=== PATIENT | male | born 1965 | race Caucasian/White ===

== ENCOUNTER 2018-08-03 13:30 | Emergency (ER) | payer BC, OTHER ==
[2018-08-03] MEDS ORDERED: Benzocaine/Menthol (Cepacol) Lozenge MT ONE (13:53)
--- NOTE | 2018-08-03 13:58 | C.PDOC ---
History Of Present Illness 53 y/o male presents to the ER complaining of productive cough w/yellow phlegm, sore throat, and body aches which have been present for the past few days. Patient states that he was anxious because he thought that the throat pain was a symptom of "throat cancer." Patient reports that he has history of tobaccos smoking for the past 5 years and he drinks ETOH daily. Denies having fever, chills, nausea, vomiting, and diarrhea. Time Seen by Provider: 08/03/18 13:36 Chief Complaint (Nursing): Anxiety History Per: Patient History/Exam Limitations: no limitations Onset/Duration Of Symptoms: Days Current Symptoms Are (Timing): Still Present Severity: Moderate Past Medical History Reviewed: Historical Data, Nursing Documentation, Vital Signs Vital Signs: Last Vital Signs Temp 99.1 F 08/03/18 13:42 Pulse 104 H 08/03/18 13:42 Resp 19 08/03/18 13:42 BP 156/84 H 08/03/18 13:42 Pulse Ox 98 08/03/18 13:42 - Medical History PMH: Gastrointestinal Ulcer, Hypothyroidism Denies: Diabetes, Hepatitis, HIV, HTN, Seizures, Sexually Transmitted Disease Surgical History: No Surg Hx - [facility] Procedures ALCOHOL DETOXIFICATION (09/03/13) DETOXIFICATION SERVICES FOR SUBSTANCE ABUSE TREATMENT (02/16/16) Family History: States: No Known Family Hx - Social History Hx Tobacco Use: Yes Hx Alcohol Use: Yes Hx Substance Use: No - Immunization History Hx Tetanus Toxoid Vaccination: No Hx Influenza Vaccination: Yes Hx Pneumococcal Vaccination: Yes Review Of Systems Except As Marked, All Systems Reviewed And Found Negative. Constitutional: Positive for: Malaise. Negative for: Fever, Chills ENT: Positive for: Throat Pain Cardiovascular: Negative for: Chest Pain Respiratory: Positive for: Cough. Negative for: Shortness of Breath Gastrointestinal: Negative for: Nausea, Vomiting, Diarrhea Physical Exam - Physical Exam Appears: Non-toxic, No Acute Distress Skin: Normal Color, Warm, Dry Head: Atraumatic, Normacephalic Eye(s): bilateral: Normal Inspection Ear(s): Bilateral: Normal Nose: Normal Oral Mucosa: Moist Throat: Erythema (mild erythema), No Exudate Neck: Supple Chest: Symmetrical Cardiovascular: Rhythm Regular Respiratory: Normal Breath Sounds, No Rales, No Rhonchi, No Wheezing Gastrointestinal/Abdominal: Normal Exam, Soft, No Tenderness, No Guarding, No Rebound Neurological/Psych: Oriented x3, Normal Speech ED Course And Treatment O2 Sat by Pulse Oximetry: 98 (RA) Pulse Ox Interpretation: Normal - Other Rad CXR X-Ray: Viewed By Me, Read By Radiologist Interpretation: Date of service: 08/03/2018. PROCEDURE: CHEST RADIOGRAPH, 1 VIEW. HISTORY: productive cough. COMPARISON: None available. FINDINGS: LUNGS: The lungs are well inflated and clear. PLEURA: No pneumothorax or pleural effusion. CARDIOVASCULAR: The heart is normal in size. No aortic atherosclerotic calcifications present. OSSEOUS STRUCTURES: Within normal li mits for the patient's age. VISUALIZED UPPER ABDOMEN: Normal. OTHER FINDINGS: None. IMPRESSION: No active pulmonary disease. Medical Decision Making Medical Decision Making: Plan: --Toradol IM --CXR Updates: On re-evaluation, patient is feeling better. Patient has been diagnosed with acute bronchitis and discharged home. Disposition - Disposition Referrals: [facility] at [facility] [Outside] [facility] at [facility] [Outside] [facility] at [place] [Outside] Disposition: HOME/ ROUTINE Disposition Time: 14:56 Condition: GOOD Prescriptions: Azithromycin [Zithromax] 250 mg PO DAILY 5 Days #6 tab Benzocaine/Menthol [Cepacol Sore Throat Lozenge] 1 each MM Q3 #6 lozenge Instructions: Acute Bronchitis Forms: [facility] (Dutch) - Clinical Impression Clinical Impression: Acute bronchitis - Scribe Statement The provider has reviewed the documentation as recorded by the Debbie Marin Provider Attestation: All medical record entries made by the Brendaibe were at my direction and personally dictated by me. I have reviewed the chart and agree that the record accurately reflects my personal performance of the history, physical exam, medical decision making, and the department course for this patient. I have also personally directed, reviewed, and agree with the discharge instructions and disposition.
--- NOTE | 2018-08-03 14:28 | RAD ---
Date of service: 08/03/2018 PROCEDURE: CHEST RADIOGRAPH, 1 VIEW HISTORY: productive cough COMPARISON: None available. FINDINGS: LUNGS: The lungs are well inflated and clear. PLEURA: No pneumothorax or pleural effusion. CARDIOVASCULAR: The heart is normal in size. No aortic atherosclerotic calcifications present. OSSEOUS STRUCTURES: Within normal limits for the patient's age. VISUALIZED UPPER ABDOMEN: Normal. OTHER FINDINGS: None. IMPRESSION: No active pulmonary disease.
[2018-08-03 14:57] VITALS: BP 149/79; PULSE 99; RESP 18; TEMP 99.2
[2018-08-08 14:51] VITALS: O2SAT 98
== END 2018-08-03 14:56 | disposition home or self-care (01) ==
LOC: C.ER 13:30
DX: J20.9 Acute bronchitis, unspecified (principal)
CPT/HCPCS: 71045; 96372; 99283; J1885

== ENCOUNTER 2018-08-09 22:34 | Inpatient (IN) | payer OTHER ==
[2018-08-09 23:07] LABS: EOS # 0.1 K/uL (0.0-0.7); HEMOGLOBIN 15.1 g/dL (12.0-18.0); MONO # 0.8 K/uL (0.0-0.8)
--- NOTE | 2018-08-09 23:13 | C.PDOC ---
History Of Present Illness 53 year old male is brought to the ED by EMS for evaluation of feeling depressed. Patient admits to drinking alcohol today. Patient denies SI/HI, hallucinations, CP, SOB, injury, fall, trauma. Time Seen by Provider: 08/09/18 23:12 Chief Complaint (Nursing): Psychiatric Evaluation History Per: Patient, EMS History/Exam Limitations: intoxication Onset/Duration Of Symptoms: Hrs Current Symptoms Are (Timing): Still Present Suicide/Self Injury Attempted (Context): None Modifying Factor(s): Alcohol Associated Symptoms: Depression. denies: Suicidal Thoughts, Suicidal Plan Recent travel outside of the [place]: No Additional History Per: Patient, EMS Past Medical History Reviewed: Historical Data, Nursing Documentation, Vital Signs Vital Signs: Last Vital Signs Temp 98.5 F 08/09/18 22:36 Pulse 93 H 08/09/18 22:36 Resp 18 08/09/18 22:36 BP 132/85 08/09/18 22:36 Pulse Ox 97 08/09/18 22:36 - Medical History PMH: Gastrointestinal Ulcer, Hypothyroidism Denies: Diabetes, Hepatitis, HIV, HTN, Seizures, Sexually Transmitted Disease Surgical History: No Surg Hx - [facility] Procedures ALCOHOL DETOXIFICATION (09/03/13) DETOXIFICATION SERVICES FOR SUBSTANCE ABUSE TREATMENT (02/16/16) Family History: States: Unknown Family Hx - Social History Hx Tobacco Use: Yes Hx Alcohol Use: Yes Hx Substance Use: No - Immunization History Hx Tetanus Toxoid Vaccination: No Hx Influenza Vaccination: Yes Hx Pneumococcal Vaccination: Yes Review Of Systems Constitutional: Negative for: Fever, Chills Eyes: Negative for: Vision Change Cardiovascular: Negative for: Chest Pain Respiratory: Negative for: Cough Gastrointestinal: Negative for: Nausea, Vomiting, Abdominal Pain Skin: Negative for: Rash Psych: Positive for: Depression. Negative for: Suicidal ideation Physical Exam - Physical Exam Appears: Non-toxic, No Acute Distress Skin: Warm, Dry Head: Normacephalic Eye(s): bilateral: Normal Inspection Neck: Supple Chest: Symmetrical Cardiovascular: Rhythm Regular Respiratory: No Rales, No Rhonchi, No Wheezing Gastrointestinal/Abdominal: Soft, No Tenderness, No Guarding, No Rebound Extremity: Bilateral: Atraumatic, Normal Color And Temperature, Normal ROM Neurological/Psych: Oriented x3, Normal Speech, Normal Cognition Gait: Steady ED Course And Treatment - Laboratory Results Result Diagrams: 08/09/18 23:04 08/09/18 23:04 O2 Sat by Pulse Oximetry: 97 (ON RA) Pulse Ox Interpretation: Normal Progress Note: Plan: - Labs. - Crisis. - UA Disposition Discussed With Dr.: Zayda Bonner Comment: accepted the pt onhis service and took over the care at 3:47 Doctor Will See Patient In The: Hospital Counseled Patient/Family Regarding: Studies Performed, Diagnosis - Disposition Disposition: HOSPITALIZED Disposition Time: 23:13 Condition: FAIR Forms: [facility] (Romanian) - POA Present On Arrival: Poor Glycemic Control - Clinical Impression Clinical Impression: Alcohol use disorder - Scribe Statement The provider has reviewed the documentation as recorded by the Scribe Lucas Tomas All medical record entries made by the Scribe were at my direction and personally dictated by me. I have reviewed the chart and agree that the record accurately reflects my personal performance of the history, physical exam, medical decision making, and the department course for this patient. I have also personally directed, reviewed, and agree with the discharge instructions and disposition. Decision To Admit - Pt Status Changed To: Hospital Disposition Of: Inpatient - Admit Certification Admit to Inpatient:: After my assessment, the patient will require hospitalization for at least two midnights. This is because of the severity of symptoms shown, intensity of services needed, and/or the medical risk in this patient being treated as an outpatient. - InPatient: Physician Admission Certification: I certify that this patient requires 2 or more midnights of care for the following reason:: After my assessment, the patient will require hospitalization for at least two midnights. This is because of the severity of symptoms shown, intensity of services needed, and/or the medical risk in this patient being treated as an outpatient. - . Bed Request Type: Detox Admitting Physician: Zayda Bonner Patient Diagnosis: Alcohol use disorder
[2018-08-09 23:14] LABS: URINE BILIRUBIN NEGATIVE (NEGATIVE); URINE BLOOD 1+ (NEGATIVE); URINE CLARITY Clear (Clear); URINE COLOR Straw (YELLOW); URINE GLUCOSE (UA) NORMAL (Normal); URINE LEUKOCYTE ESTERASE NEG Leu/uL (Negative); URINE PROTEIN NEGATIVE (NEGATIVE); URINE UROBILINOGEN NORMAL mg/dL (0.2-1.0)
[2018-08-09 23:15] LABS: BASO % 0.6 % (0.0-2.0); EOS % 1.1 % (0.0-4.0); LYMPH # 1.9 K/uL (1.0-4.3); LYMPH % 24.1 % (20.0-40.0); MEAN CORPUSCULAR HEMOGLOBIN 30.6 pg (27.0-31.0); MEAN CORPUSCULAR HGB CONC 33.7 g/dL (33.0-37.0); MEAN PLATELET VOLUME 7.1 fL (7.2-11.7); MONO % 10.4 % (0.0-10.0); NEUT % 63.8 % (50.0-75.0); RBC 4.94 Mil/uL (4.40-5.90); RED CELL DISTRIBUTION WIDTH 14.8 % (11.5-14.5); WHITE BLOOD COUNT 7.8 K/uL (4.8-10.8)
[2018-08-09 23:17] LABS: ALB/GLOB RATIO 1.2 (1.0-2.1); ALBUMIN 4.6 g/dL (3.5-5.0); ALT/SGPT 65 U/L (21-72); AST/SGOT 110 U/L (17-59); BLOOD UREA NITROGEN 5 mg/dL (9-20); CALCIUM 8.9 mg/dl (8.6-10.4); GFR NON-AFRICAN AMERICAN > 60
[2018-08-09 23:19] LABS: MEAN CELL VOLUME 90.8 fL (80.0-94.0)
[2018-08-09 23:23] LABS: BARBITURATES, UR NEGATIVE (NEGATIVE); BENZODIAZEPINES, UR NEGATIVE (NEGATIVE); OPIATES, UR NEGATIVE (NEGATIVE); PHENCYCLIDINE, UR NEGATIVE (NEGATIVE)
--- NOTE | 2018-08-10 05:34 | PCM.BM ---
<Grupo Brian - Last Filed: 08/10/18 05:33> Treatment Plan Problems - Problems identified on initial assessmt potential for alcohol withdrawal Date Initiated: 08/10/18 Time Initiated: 05:33 Assessment reference: NA Status: Active Treatment assets and liabiliti Patient Assests: cooperative, ADL independent, cognitively intact, good interpersonal skills Patient Liabilities: substance abuse - Milieu Protocol Maintain good personal hygiene: daily Encourage regular showers, daily Remind patient to perform daily oral care, daily Assist patient to perform ADL's Maintain personal safety: every shift Educate patient to report safety concerns to staff, every shift Monitor environment for contraband/sharps Medication safety: Monitor for expected outcome, potential side effects: every shift, Assess barriers to learning: every shift, Assess readiness for medication education: every shift <Miriam Trevino - Last Filed: 08/10/18 12:16> Family Contact Family involvement: No known Family/SO - Goals for Treatment Patient goals for treatment: Complete detox and apply for long-term inpatient rehab. Discharge/Continuing Care - Education Needs Education Needs: Patient Medication, Patient Diagnosis/Disease Process, Patient Coping Skills, Patient Anger Management skills, Patient Placement options, Patient Community resources - Discharge Discharge Criteria: No longer exhibiting s/s of withdrawal, Reduction of target symptoms Discharge to:: Substance Abuse Rehab - Treatment Team Participation Patient/Family/SO Statement: 08/10/18 12:16 (via obstetrics gyn physician) "I wanna try to get back into [facility]. I called a counselor there. She told me to call when I got here. I talked to her last week before I came in here..." Discussed with Family/SO: No Was Patient/Family/SO present at Treatment Team Meeting: Yes <Alexandria Lamb - Last Filed: 08/12/18 09:13> - Diagnosis (1) Alcohol use disorder Status: Acute Interventions: 08/10/18 19:13 * Assess 7x/week regarding severity of withdrawal * Educate regarding risks, benefits, side effects and alternatives of medications * Use Motivational Interviewing for abstinence * Use CBT for relapse prevention * Medication management for withdrawal symptoms * Encourage medication assisted treatment *
[2018-08-10] MEDS: Multiple Vitamins Tab PO SCH (10:11)
--- NOTE | 2018-08-11 00:05 | PCM.PSYCH ---
Initial Psychiatric Evaluation - Initial Psychiatric Evaluation Type of Admission: Voluntary Legal Status: Capacity Chief Complaint (in patient's own words): "Alcohol" History of Present Illness and Precipitating Events: Patient seen, chart reviewed and case discussed. Online regional sales consultant used for the interview. This is a 53-year-old male, , has 1 adult daughter, currently homeless. 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 The patient reports to drinking 24 ounce beers more than 5 and a couple of shots every day. He reports significant withdrawal symptoms. He first drank when he was 20 and he has been to detox and rehab 4 times each since then. He was in [facility], too. He smokes 8 cigarettes a day He used to use heroin but he quit 18 years ago. He feels depressed and anxious but denies suicidal ideation. Past psychiatric: Depression Medical history: Denies Family psych history: Denies Current Medications: Active Medications Generic Name Dose Route Start Last Admin Trade Name Freq PRN Reason Stop Dose Admin Chlordiazepoxide 25 mg 08/10/18 10:00 08/10/18 21:06 Librium PO 08/15/18 09:59 25 mg Q6H ALEXIS Administration Taper Chlordiazepoxide 25 mg 08/10/18 08:55 Librium PO Q4H PRN Alcohol Withdrawal Clonidine HCl 0.1 mg 08/10/18 08:55 08/10/18 21:06 Catapres PO 0.1 mg Q4H PRN Administration Symptoms of alcohol withdrawl Folic Acid 1 mg 08/10/18 10:00 08/10/18 10:12 Folic Acid PO 1 mg DAILY ALEXIS Administration Multivitamins 1 tab 08/10/18 10:00 08/10/18 10:11 Hexavitamin PO 1 tab DAILY ALEXIS Administration Thiamine HCl 100 mg 08/10/18 10:00 08/10/18 10:11 Vitamin B1 Tab PO 100 mg DAILY ALEXIS Administration Trazodone HCl 50 mg 08/10/18 08:55 08/10/18 21:06 Desyrel PO 50 mg HS PRN Administration Insomnia Past Psychiatric History - Past Psychiatric History Previous Treatment History: None Pertinent Medical Hx (Current Medical&Sleep Prob, Allergies): Allergies Allergy/AdvReac Type Severity Reaction Status Date / Time No Known Allergies Allergy Verified 08/09/18 22:55 Lipitor 1 tab PO DAILY 08/03/18 Review of Systems - Neurological Neurological: Tremor - Psychiatric Psychiatric: Abnormal Sleep Pattern, Anhedonia, Anxiety, Depression. absent: Hallucinations, Homicidal Ideation, Suicidal Ideation Mental Status Examination - Personal Presentation Personal Presentation: Looks older than stated age - Affect Affect: Constricted - Motor Activity Motor Activity: Calm - Reliability in Providing Information Reliability in Providing Information: Good - Speech Speech: Organized - Mood Mood: Depressed, Anxious - Formal Thought Process Formal Thought Process: No Impairment - Cognitive Functions Orientation: Person, Place, Situation, Time Attention/Concentration: Easily distracted Estimate of Intelligence: Average Judgement: Intact, as evidence by: Insight regarding need for hospitalization Memory: Recent intact, as evidence by: Ability to recall events of the day, Remote impaired as evidenced by: Inability to recall sig life events - Risk Risk: Withdrawal, Diminished functioning - Strength & Assets Inventory Strength & Assets Inventory: Cooperative DSM 5 DX - DSM 5 DSM 5 Diagnosis: Alcohol withdrawal alcohol use d/o - severe Depressive d/o - unspecified Opioid use d/o - in remission - Recommended/Plan of Treatment Treatment Recommendations and Plan of Treatment: Taper with librium Gabapentin for augmentation if needed As needed medications All risks, benefits and alternatives of the meds discussed, and the pt agreed and understood. Attend groups and activities Supportive therapy and psychoeducation [place] for abstinence CBT for relapse prevention Encourage MAT Refer to rehab or IOP, and self-help groups Teach healthy lifestyle methods, i.e. diet, exercise, meditation Smoking cessation with [place] Nicotine patch if needed 33 min Projected ELOS: 4 days - Smoking Cessation Smoking Cessation Initiated: Yes
--- NOTE | 2018-08-11 08:14 | PCM.PYCHPN ---
Psychiatric Progress Note - Psychiatric Progress Note Patient seen today, length of contact: 16 min Patient Chief Complaint: I am not feeling good.' Problems Identified/Issues Discussed: Patient was seen and evaluated, chart reviewed and discussed with the staff. Patient still reports withdrawal symptoms including nausea, sweating and headaches. He remained isolated and withdrawn, however he denies any feelings of hopelessness and helplessness. He denies any suicidal ideation or homicidal ideation. He denies any auditory hallucinations or any paranoia. He is taking medication and denies any side effects. Symptoms are improving but he needs to stay longer for further stabilization. Supportive therapy was given Medication Change: Yes Medical Record Reviewed: Yes Mental Status Examination - Cognitive Function Orientation: Person, Place, Situation, Time Memory: Intact Attention: WNL Concentration: Poor Association: WNL Fund of Knowledge: Poor - Mood Mood: Depressed, Anxious - Affect Affect: Constricted - Formal Thought Process Formal Thought Process: No Impairment - Suicidal Ideation Suicidal Ideation: No - Homicidal Ideation Homicidal Ideation: No Goal/Treatment Plan - Goal/Treatment Plan Need for Continued Stay: Discharge may exacerbated symptoms Progress Toward Problem(s) and Goals/Treatment Plan: Alcohol withdrawal alcohol use d/o - severe Depressive d/o - unspecified Opioid use d/o - in remission Taper with librium Gabapentin for augmentation if needed As needed medications All risks, benefits and alternatives of the meds discussed, and the pt agreed and understood. Attend groups and activities Supportive therapy and psychoeducation [place] for abstinence CBT for relapse prevention Encourage MAT Refer to rehab or IOP, and self-help groups Teach healthy lifestyle methods, i.e. diet, exercise, meditation Smoking cessation with [place] Nicotine patch if needed - Smoking Cessation Smoking Cessation Initiated: No
[2018-08-11] MEDS: Multiple Vitamins Tab PO SCH (09:56)
[2018-08-11] MEDS: guaiFENesin DM 200 mg-20 mg/10 ml UD PO PRN (21:32)
[2018-08-11] MEDS: Benzocaine/Menthol (Cepacol) Lozenge PO PRN (21:32)
[2018-08-12] MEDS: Multiple Vitamins Tab PO SCH (09:57)
[2018-08-12] MEDS: Benzocaine/Menthol (Cepacol) Lozenge PO PRN (10:00)
[2018-08-12] MEDS: guaiFENesin DM 200 mg-20 mg/10 ml UD PO PRN (10:00)
[2018-08-13] MEDS: Multiple Vitamins Tab PO SCH (09:39)
[2018-08-13 11:15] VITALS: RESP 18
--- NOTE | 2018-08-14 00:19 | PCM.PYCHPN ---
Psychiatric Progress Note - Psychiatric Progress Note Patient seen today, length of contact: 16 min Patient Chief Complaint: "Alcohol" Medication Change: Yes (detox changes daily) Medical Record Reviewed: Yes Mental Status Examination - Cognitive Function Orientation: Person, Place, Situation, Time Memory: Intact Attention: WNL Concentration: Poor Association: WNL Fund of Knowledge: Poor - Mood Mood: Depressed, Anxious - Affect Affect: Constricted - Formal Thought Process Formal Thought Process: No Impairment - Suicidal Ideation Suicidal Ideation: No - Homicidal Ideation Homicidal Ideation: No Goal/Treatment Plan - Goal/Treatment Plan Need for Continued Stay: Discharge may exacerbated symptoms Progress Toward Problem(s) and Goals/Treatment Plan: Taper with librium Gabapentin for augmentation if needed As needed medications All risks, benefits and alternatives of the meds discussed, and the pt agreed and understood. Attend groups and activities Supportive therapy and psychoeducation [place] for abstinence CBT for relapse prevention Encourage MAT Refer to rehab or IOP, and self-help groups Teach healthy lifestyle methods, i.e. diet, exercise, meditation Smoking cessation with [place] Nicotine patch if needed 33 min
--- NOTE | 2018-08-14 08:59 | PCM.PYCHDC ---
Mental Status Examination - Mental Status Examination Orientation: Person Discharge Summary - Discharge Note Consultations:: List each consultation separately and include: 1. Reason for request. 2. Findings. 3. Follow-up Summary of Hospital Course include:: 1. Description of specific treatment plan utilized for patients during their course of treatmen. 2. Summarize the time- course for resolution of acute symptoms and/or regressed behaviors. 3. Describe issues identified and worked on during hospitalization. 4. Describe medication utilized. 5. Describe medical problems identified and treated. 6. Reassessment of suicide risk Summary of Hospital Course: Patient seen, chart reviewed and case discussed. Online interpreter and translator used for the interview. This is a 53-year-old male, , has 1 adult daughter, currently homeless. 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 The patient reports to drinking 24 ounce beers more than 5 and a couple of shots every day. He reports significant withdrawal symptoms. He first drank when he was 20 and he has been to detox and rehab 4 times each since then. He was in [facility], [facility]. He smokes 8 cigarettes a day He used to use heroin but he quit 18 years ago. He feels depressed and anxious but denies suicidal ideation. Past psychiatric: Depression Medical history: Denies Family psych history: Denies He refused [facility] and rejected by [facility]. Will go to - Diagnosis (1) Alcohol use disorder Current Visit: Yes Status: Acute - Final Diagnosis (DSM 5) Condition upon Discharge: FAIR Disposition: HOME/ ROUTINE Follow-up Treatment Plan: Taper with librium Gabapentin for augmentation if needed As needed medications All risks, benefits and alternatives of the meds discussed, and the pt agreed and understood. Attend groups and activities Supportive therapy and psychoeducation [place] for abstinence CBT for relapse prevention Encourage MAT Refer to rehab or IOP, and self-help groups Teach healthy lifestyle methods, i.e. diet, exercise, meditation Smoking cessation with [place] Nicotine patch if needed 33 min Prescriptions/Medication Reconciliation: traZODone [Desyrel] 50 mg PO HS PRN #30 tab PRN Reason: Insomnia
[2018-08-14 09:06] VITALS: BP 115/75; PULSE 70; TEMP 97.7; O2SAT 97
[2018-08-14] MEDS: Multiple Vitamins Tab PO SCH (09:19)
== END 2018-08-14 10:40 | disposition home or self-care (01) | DRG 745 ==
LOC: C.ER 22:34 → C.7D 08-10 04:19
PROVIDERS: ADMIT Psychiatry & Neurology Psychiatry; ATTEND Psychiatry & Neurology Psychiatry
PROC: HZ2ZZZZ Detoxification Services for Substance Abuse Treatment (ICD-10-PCS; principal; 2018-08-10)
PROC: GZ3ZZZZ Medication Management (ICD-10-PCS; 2018-08-10)
PROC: HZ80ZZZ Medication Management for Substance Abuse Treatment, Nicotine Replacement (ICD-10-PCS; 2018-08-10)
PROC: HZ59ZZZ Individual Psychotherapy for Substance Abuse Treatment, Supportive (ICD-10-PCS; 2018-08-10)
PROC: HZ46ZZZ Group Counseling for Substance Abuse Treatment, Psychoeducation (ICD-10-PCS; 2018-08-10)
DX: F10.230 Alcohol dependence with withdrawal, uncomplicated (principal); F11.11 Opioid abuse, in remission; F32.9 Major depressive disorder, single episode, unspecified; F17.210 Nicotine dependence, cigarettes, uncomplicated; E03.9 Hypothyroidism, unspecified; Z87.11 Personal history of peptic ulcer disease

== ENCOUNTER 2018-08-16 03:45 | Emergency (ER) | payer OTHER ==
[2018-08-16 03:58] VITALS: BP 118/82; PULSE 82; RESP 20; TEMP 97.2; O2SAT 100
[2018-08-16] MEDS ORDERED: Amoxicillin 125 MG/5 ml PO STA (04:59)
--- NOTE | 2018-08-16 05:07 | C.PDOC ---
History Of Present Illness 53 year old male brought in via EMS for public intoxication. Patient states he has been drinking a lot tonight. He reports sore throat for the past few days. Denies fever or other complaints. Chief Complaint (Nursing): Substance Abuse History Per: Patient History/Exam Limitations: no limitations Onset/Duration Of Symptoms: Days Current Symptoms Are (Timing): Still Present Suicide/Self Injury Attempted (Context): None Modifying Factor(s): Alcohol Associated Symptoms: denies: Depression, Suicidal Thoughts Involuntary Hold By: None Recent travel outside of the [place]: No Past Medical History Reviewed: Historical Data, Nursing Documentation, Vital Signs Vital Signs: Last Vital Signs Temp 97.2 F L 08/16/18 03:52 Pulse 82 08/16/18 03:52 Resp 20 08/16/18 03:52 BP 118/82 08/16/18 03:52 Pulse Ox 100 08/16/18 03:52 - Medical History PMH: Depression, Gastrointestinal Ulcer, Hypercholesterolemia, Hypothyroidism Denies: Diabetes, Hepatitis, HIV, HTN, Chronic Kidney Disease, Seizures, Sexually Transmitted Disease - [facility] Procedures ALCOHOL DETOXIFICATION (09/03/13) DETOXIFICATION SERVICES FOR SUBSTANCE ABUSE TREATMENT (08/10/18) GROUP SAW FILER FOR SUBSTANCE ABUSE TREATMENT, PSYCHOEDUCATION (08/10/18) INDIV PSYCHOTHERAPY FOR SUBSTANCE ABUSE TREATMENT, SUPPORT (08/10/18) MEDICATION MANAGEMENT (08/10/18) MEDS MGMT FOR SUBSTANCE ABUSE TREATMENT, NICOTINE REPLACE (08/10/18) Family History: States: Unknown Family Hx - Social History Hx Tobacco Use: Yes Hx Alcohol Use: Yes Hx Substance Use: Yes - Immunization History Hx Tetanus Toxoid Vaccination: No Hx Influenza Vaccination: Yes Hx Pneumococcal Vaccination: Yes Review Of Systems Constitutional: Negative for: Fever, Chills ENT: Positive for: Throat Pain Cardiovascular: Negative for: Chest Pain, Palpitations Respiratory: Negative for: Cough, Shortness of Breath Gastrointestinal: Negative for: Nausea, Vomiting Neurological: Negative for: Weakness, Numbness Physical Exam - Physical Exam Appears: Non-toxic, Other (Alert, conscious, ETOH on breath, no sign of injury) Skin: Normal Color, Warm, Dry Head: Atraumatic, Normacephalic Eye(s): bilateral: Normal Inspection Ear(s): Bilateral: Normal Nose: Normal Oral Mucosa: Moist Throat: No Exudate, Other (Congested) Neck: Normal, Supple Chest: Symmetrical, No Tenderness Cardiovascular: Rhythm Regular Respiratory: Normal Breath Sounds, No Rales, No Rhonchi, No Wheezing Gastrointestinal/Abdominal: Soft, No Tenderness Extremity: Normal ROM (x4) Neurological/Psych: Oriented x3, Normal Speech ED Course And Treatment O2 Sat by Pulse Oximetry: 100 (Room air) Pulse Ox Interpretation: Normal Progress Note: Rapid strep and flu swab ordered. Amoxicillin administered. Patient eloped at 0510, he was witness ambulating out of the ER with steady gait. Disposition - Disposition Disposition: ELOPEMENT - ER ONLY Disposition Time: 05:20 Condition: STABLE Forms: [employer] (Kyrgyz) - Clinical Impression Clinical Impression: Alcohol abuse - Scribe Statement The provider has reviewed the documentation as recorded by the Scribadonay Watt All medical record entries made by the Scribe were at my direction and personally dictated by me. I have reviewed the chart and agree that the record accurately reflects my personal performance of the history, physical exam, medical decision making, and the department course for this patient. I have also personally directed, reviewed, and agree with the discharge instructions and disposition.
== END 2018-08-16 05:20 | disposition left against medical advice (07) ==
LOC: C.ER 03:45
DX: F10.10 Alcohol abuse, uncomplicated (principal); E78.00 Pure hypercholesterolemia, unspecified; E03.9 Hypothyroidism, unspecified; Z72.0 Tobacco use

== ENCOUNTER 2018-08-17 02:31 | Emergency (ER) | payer OTHER ==
[2018-08-17 02:49] VITALS: TEMP 98.2
--- NOTE | 2018-08-17 03:32 | C.PDOC ---
History Of Present Illness 53 year old male is brought to the ED by EMS for alcohol intoxication. Patient admits to drinking alcohol tonight. Patient denies SI/HI, hallucinations, SOB, nausea, vomit, diarrhea, headache, dizziness, rash, weakness, numbness. Time Seen by Provider: 08/17/18 02:47 Chief Complaint (Nursing): Chest Pain History Per: Patient, EMS History/Exam Limitations: intoxication Onset/Duration Of Symptoms: Hrs Current Symptoms Are (Timing): Still Present Suicide/Self Injury Attempted (Context): None Modifying Factor(s): Alcohol Associated Symptoms: denies: Depression, Suicidal Thoughts, Suicidal Plan Recent travel outside of the [place]: No Additional History Per: Patient, EMS Past Medical History Reviewed: Historical Data, Nursing Documentation, Vital Signs Vital Signs: Last Vital Signs Temp 98.2 F 08/17/18 02:43 Pulse 88 08/17/18 02:43 Resp 16 08/17/18 02:43 BP 101/60 08/17/18 02:43 Pulse Ox 99 08/17/18 02:43 - Medical History PMH: Depression, Gastrointestinal Ulcer, Hypercholesterolemia, Hypothyroidism Denies: Diabetes, Hepatitis, HIV, HTN, Chronic Kidney Disease, Seizures, Sexually Transmitted Disease Surgical History: No Surg Hx - [facility] Procedures ALCOHOL DETOXIFICATION (09/03/13) DETOXIFICATION SERVICES FOR SUBSTANCE ABUSE TREATMENT (08/10/18) GROUP MAMMOGRAPHER FOR SUBSTANCE ABUSE TREATMENT, PSYCHOEDUCATION (08/10/18) INDIV PSYCHOTHERAPY FOR SUBSTANCE ABUSE TREATMENT, SUPPORT (08/10/18) MEDICATION MANAGEMENT (08/10/18) MEDS MGMT FOR SUBSTANCE ABUSE TREATMENT, NICOTINE REPLACE (08/10/18) Family History: States: Unknown Family Hx - Social History Hx Tobacco Use: Yes Hx Alcohol Use: Yes Hx Substance Use: No - Immunization History Hx Tetanus Toxoid Vaccination: No Hx Influenza Vaccination: Yes Hx Pneumococcal Vaccination: Yes Review Of Systems Constitutional: Negative for: Fever, Chills Cardiovascular: Positive for: Chest Pain. Negative for: Palpitations Respiratory: Negative for: Cough, Shortness of Breath Gastrointestinal: Negative for: Nausea, Vomiting, Abdominal Pain Skin: Negative for: Rash Neurological: Negative for: Weakness, Numbness Psych: Negative for: Depression, Suicidal ideation Physical Exam - Physical Exam Appears: Non-toxic, No Acute Distress, Other (intoxicated) Skin: Normal Color, Warm, Dry Head: Atraumatic, Normacephalic Eye(s): bilateral: Normal Inspection Neck: Normal ROM, Supple Chest: Symmetrical Cardiovascular: Rhythm Regular Respiratory: Normal Breath Sounds, No Rales, No Rhonchi, No Wheezing Gastrointestinal/Abdominal: Soft, No Tenderness, No Guarding, No Rebound Extremity: Normal ROM, No Tenderness, No Swelling Neurological/Psych: Oriented x3, Normal Speech, Normal Cognition Gait: Steady ED Course And Treatment ECG: Interpreted By Me, Viewed By Me ECG Rhythm: Sinus Rhythm ECG Interpretation: Normal Rate From EC (BPM) O2 Sat by Pulse Oximetry: 99 (ON RA) Pulse Ox Interpretation: Normal Medical Decision Making Medical Decision Making: Plan: * EKG * Observe until clinically sober Patient states he is feeling better, seen walking with a steady gait in the ED. Disposition - Disposition Referrals: [facility] [Outside] [facility] [Outside] Disposition: HOME/ ROUTINE Disposition Time: 05:50 Condition: IMPROVED Additional Instructions: SHIVAM CORONEL, thank you for letting us take care of you today. The emergency medical care you received today was directed at your acute symptoms. If you were prescribed any medication, please fill it and take as directed. It may take several days for your symptoms to resolve. Return to the Emergency Department if your symptoms worsen, do not improve, or if you have any other problems. Please contact your doctor or call one of the physicians/clinics you have been referred to that are listed on the Patient Visit Information form that is included in your discharge packet. Bring any paperwork you were given at discharge with you along with any medications you are taking to your follow up visit. Our treatment cannot replace ongoing medical care by a primary care provider outside of the emergency department. Thank you for allowing the [facility] team to be part of your care today. Do not drink too much alcohol at one time. Follow up in our clinic or your primary care doctor in 5-7 days for outpatient care. Instructions: Alcohol Use - When Is Drinking a Problem? Forms: [employer] (Cypriot) - Clinical Impression Clinical Impression: Alcohol abuse - Scribe Statement The provider has reviewed the documentation as recorded by the Scribe Lucas Tomas All medical record entries made by the Scribe were at my direction and personal ly dictated by me. I have reviewed the chart and agree that the record accurately reflects my personal performance of the history, physical exam, medical decision making, and the department course for this patient. I have also personally directed, reviewed, and agree with the discharge instructions and disposition.
[2018-08-17 05:38] VITALS: BP 92/62; PULSE 82; RESP 20
[2018-08-17 06:02] VITALS: O2SAT 99
--- NOTE | 2018-08-20 09:38 | CARD ---
APPROVED REPORT Date of service: 08/17/2018 EKG Measurement Heart [id number] <Conclusion> Normal sinus rhythm Normal ECG
== END 2018-08-17 06:12 | disposition home or self-care (01) ==
LOC: C.ER 02:31
DX: F10.129 Alcohol abuse with intoxication, unspecified (principal); Y90.9 Presence of alcohol in blood, level not specified

== ENCOUNTER 2018-09-01 19:59 | Emergency (ER) | payer OTHER ==
--- NOTE | 2018-09-01 20:21 | C.PDOC ---
Time Seen by Provider: 09/01/18 20:20 Chief Complaint (Nursing): Substance Abuse Past Medical History Vital Signs: Last Vital Signs Temp 98.2 F 09/01/18 20:09 Pulse 98 H 09/01/18 20:09 Resp 20 09/01/18 20:09 BP 125/74 09/01/18 20:09 Pulse Ox 99 09/01/18 20:09 - Medical History PMH: Depression, Gastrointestinal Ulcer, Hypercholesterolemia, Hypothyroidism Denies: Diabetes, Hepatitis, HIV, HTN, Chronic Kidney Disease, Seizures, Sexually Transmitted Disease - [facility] Procedures ALCOHOL DETOXIFICATION (09/03/13) DETOXIFICATION SERVICES FOR SUBSTANCE ABUSE TREATMENT (08/10/18) GROUP ANDROID UI DEVELOPER FOR SUBSTANCE ABUSE TREATMENT, PSYCHOEDUCATION (08/10/18) INDIV PSYCHOTHERAPY FOR SUBSTANCE ABUSE TREATMENT, SUPPORT (08/10/18) MEDICATION MANAGEMENT (08/10/18) MEDS MGMT FOR SUBSTANCE ABUSE TREATMENT, NICOTINE REPLACE (08/10/18) Family History: States: Unknown Family Hx - Social History Hx Tobacco Use: Yes Hx Alcohol Use: Yes Hx Substance Use: No - Immunization History Hx Tetanus Toxoid Vaccination: No Hx Influenza Vaccination: Yes Hx Pneumococcal Vaccination: Yes ED Course And Treatment O2 Sat by Pulse Oximetry: 99 Disposition Counseled Patient/Family Regarding: Studies Performed, Diagnosis - Disposition Disposition Time: 20:21
--- NOTE | 2018-09-01 21:49 | C.PDOC ---
History Of Present Illness 53 y/o male comes in wanting a place to sleep. Patient was recently admitted for alcohol detox on 08/09/18. Patient has no physical complaints. Time Seen by Provider: 09/01/18 20:20 Chief Complaint (Nursing): Substance Abuse History Per: Patient History/Exam Limitations: no limitations Onset/Duration Of Symptoms: Days Current Symptoms Are (Timing): Still Present Suicide/Self Injury Attempted (Context): None Modifying Factor(s): Alcohol Severity: None Pain Scale Rating Of: 0 Involuntary Hold By: None Recent travel outside of the [place]: No Additional History Per: EMS Past Medical History Reviewed: Historical Data, Nursing Documentation, Vital Signs Vital Signs: Last Vital Signs Temp 98.2 F 09/01/18 20:09 Pulse 98 H 09/01/18 20:09 Resp 20 09/01/18 20:09 BP 125/74 09/01/18 20:09 Pulse Ox 99 09/01/18 20:09 - Medical History PMH: Depression, Gastrointestinal Ulcer, Hypercholesterolemia, Hypothyroidism Denies: Diabetes, Hepatitis, HIV, HTN, Chronic Kidney Disease, Seizures, Sexually Transmitted Disease - [facility] Procedures ALCOHOL DETOXIFICATION (09/03/13) DETOXIFICATION SERVICES FOR SUBSTANCE ABUSE TREATMENT (08/10/18) GROUP NATURAL GAS TRADER FOR SUBSTANCE ABUSE TREATMENT, PSYCHOEDUCATION (08/10/18) INDIV PSYCHOTHERAPY FOR SUBSTANCE ABUSE TREATMENT, SUPPORT (08/10/18) MEDICATION MANAGEMENT (08/10/18) MEDS MGMT FOR SUBSTANCE ABUSE TREATMENT, NICOTINE REPLACE (08/10/18) Family History: States: No Known Family Hx - Social History Hx Tobacco Use: Yes Hx Alcohol Use: Yes Hx Substance Use: No - Immunization History Hx Tetanus Toxoid Vaccination: No Hx Influenza Vaccination: Yes Hx Pneumococcal Vaccination: Yes Review Of Systems Constitutional: Negative for: Fever, Chills Cardiovascular: Negative for: Chest Pain Respiratory: Negative for: Shortness of Breath Gastrointestinal: Negative for: Vomiting Psych: Positive for: Other (Alcoholic) Physical Exam - Physical Exam Appears: Non-toxic, No Acute Distress Skin: Warm, Dry Head: Normacephalic Eye(s): bilateral: Normal Inspection Oral Mucosa: Moist Neck: Supple Chest: Symmetrical Cardiovascular: Rhythm Regular Respiratory: No Rales, No Rhonchi, No Wheezing Extremity: Bilateral: Atraumatic, Normal Color And Temperature, Normal ROM Neurological/Psych: Oriented x3, Normal Speech Gait: Steady ED Course And Treatment O2 Sat by Pulse Oximetry: 99 (RA) Pulse Ox Interpretation: Normal Progress Note: Labs ordered. Reevaluation Time: 00:47 Reassessment Condition: Improved Disposition Counseled Patient/Family Regarding: Studies Performed, Diagnosis, Need For Followup - Disposition Referrals: [facility] [Outside] Disposition: HOME/ ROUTINE Disposition Time: 21:48 Condition: FAIR Instructions: Alcohol Abuse and Alcoholism (DC) Forms: [employer] (Sri Lankan) - Clinical Impression Clinical Impression: Alcohol abuse, Alcohol intoxication - Scribe Statement The provider has reviewed the documentation as recorded by the Brendaibadonay Levi Provider Attestation: All medical record entries made by the Brendaibadonay were at my direction and personally dictated by me. I have reviewed the chart and agree that the record accurately reflects my personal performance of the history, physical exam, medical decision making, and the department course for this patient. I have also personally directed, reviewed, and agree with the discharge instructions and disposition.
[2018-09-02 00:24] VITALS: BP 115/51; PULSE 80; RESP 16; TEMP 98.4
[2018-09-02 00:47] VITALS: O2SAT 99
== END 2018-09-02 00:52 | disposition home or self-care (01) ==
LOC: C.ER 19:59
DX: F10.129 Alcohol abuse with intoxication, unspecified (principal); Y90.9 Presence of alcohol in blood, level not specified

== ENCOUNTER 2018-09-06 01:07 | Emergency (ER) | payer OTHER ==
--- NOTE | 2018-09-06 04:29 | C.PDOC ---
History Of Present Illness 53 year old male presents to the ER with acute ETOH intoxication stating he is homeless and wants a place to spend the night. Denies any complaints at this time. Time Seen by Provider: 09/06/18 02:43 Chief Complaint (Nursing): Substance Abuse History Per: Patient History/Exam Limitations: no limitations Onset/Duration Of Symptoms: Hrs Current Symptoms Are (Timing): Still Present Suicide/Self Injury Attempted (Context): None Modifying Factor(s): Alcohol Involuntary Hold By: None Recent travel outside of the [place]: No Past Medical History Reviewed: Historical Data, Nursing Documentation, Vital Signs Vital Signs: Last Vital Signs Temp 98.2 F 09/06/18 01:19 Pulse 68 09/06/18 01:19 Resp 18 09/06/18 01:19 BP 110/68 09/06/18 01:19 Pulse Ox 98 09/06/18 01:19 - Medical History PMH: Depression, Gastrointestinal Ulcer, Hypercholesterolemia, Hypothyroidism Denies: Diabetes, Hepatitis, HIV, HTN, Chronic Kidney Disease, Seizures, Sexually Transmitted Disease - [facility] Procedures ALCOHOL DETOXIFICATION (09/03/13) DETOXIFICATION SERVICES FOR SUBSTANCE ABUSE TREATMENT (08/10/18) GROUP STEEL LAYOUT WORKER FOR SUBSTANCE ABUSE TREATMENT, PSYCHOEDUCATION (08/10/18) INDIV PSYCHOTHERAPY FOR SUBSTANCE ABUSE TREATMENT, SUPPORT (08/10/18) MEDICATION MANAGEMENT (08/10/18) MEDS MGMT FOR SUBSTANCE ABUSE TREATMENT, NICOTINE REPLACE (08/10/18) Family History: States: Unknown Family Hx - Social History Hx Tobacco Use: Yes Hx Alcohol Use: Yes Hx Substance Use: No - Immunization History Hx Tetanus Toxoid Vaccination: No Hx Influenza Vaccination: Yes Hx Pneumococcal Vaccination: Yes Review Of Systems Constitutional: Negative for: Fever, Chills Cardiovascular: Negative for: Chest Pain, Palpitations Respiratory: Negative for: Cough, Shortness of Breath Gastrointestinal: Negative for: Nausea, Vomiting Neurological: Negative for: Weakness, Numbness Physical Exam - Physical Exam Appears: Non-toxic, Other (ETOH on breath, no sign of injury) Skin: Normal Color, Warm, Dry Head: Atraumatic, Normacephalic Oral Mucosa: Moist Chest: Symmetrical, No Tenderness Cardiovascular: Rhythm Regular Respiratory: Normal Breath Sounds, No Rales, No Rhonchi, No Wheezing Gastrointestinal/Abdominal: Soft, No Tenderness Neurological/Psych: Oriented x3, Normal Speech ED Course And Treatment O2 Sat by Pulse Oximetry: 98 (Room air) Pulse Ox Interpretation: Normal Progress Note: Patient is resting comfortably in the ER in no acute distress, vitals are stable, will discharge home. 0400: Pt is ambulatory with steady gait, AAOx3. Disposition - Disposition Disposition Time: 04:25 Condition: STABLE Forms: [employer] ([place] Islander) - Clinical Impression Clinical Impression: Alcohol abuse - PA / HAND ORNAMENT MAKER / Resident Statement MD/DO has reviewed & agrees with the documentation as recorded. - Scribe Statement The provider has reviewed the documentation as recorded by the Scribadonay Watt All medical record entries made by the Debbie were at my direction and personally dictated by me. I have reviewed the chart and agree that the record accurately reflects my personal performance of the history, physical exam, medical decision making, and the department course for this patient. I have also personally directed, reviewed, and agree with the discharge instructions and disposition.
[2018-09-06 05:28] VITALS: BP 92/60; PULSE 95; RESP 22; TEMP 97.2; O2SAT 98
== END 2018-09-06 06:04 | disposition home or self-care (01) ==
LOC: C.ER 01:07
DX: F10.10 Alcohol abuse, uncomplicated (principal); Y90.9 Presence of alcohol in blood, level not specified

== ENCOUNTER 2018-09-13 18:22 | Emergency (ER) | payer OTHER ==
[2018-09-13 19:00] VITALS: BP 118/70; PULSE 75; TEMP 97.9; O2SAT 97
--- NOTE | 2018-09-13 20:49 | C.PDOC ---
History Of Present Illness 53 y/o homeless male with a PMHx of alcohol abuse, presents to the ED requesting detox. Upon ED arrival, patient is AAOx3. No SI or HI. Patient ambulatory with steady gait. No other medical complaints. Time Seen by Provider: 09/13/18 20:28 Chief Complaint (Nursing): Substance Abuse History Per: Patient History/Exam Limitations: no limitations Onset/Duration Of Symptoms: Hrs Current Symptoms Are (Timing): Still Present Modifying Factor(s): Alcohol Associated Symptoms: denies: Suicidal Thoughts, Suicidal Plan Involuntary Hold By: None Past Medical History Reviewed: Historical Data, Nursing Documentation, Vital Signs Vital Signs: Last Vital Signs Temp 97.9 F 09/13/18 18:55 Pulse 75 09/13/18 18:55 Resp 20 09/13/18 18:55 BP 118/70 09/13/18 18:55 Pulse Ox 97 09/13/18 18:55 - Medical History PMH: Depression, Gastrointestinal Ulcer, Hypercholesterolemia, Hypothyroidism Denies: Diabetes, Hepatitis, HIV, HTN, Chronic Kidney Disease, Seizures, Sexually Transmitted Disease - [facility] Procedures ALCOHOL DETOXIFICATION (09/03/13) DETOXIFICATION SERVICES FOR SUBSTANCE ABUSE TREATMENT (08/10/18) GROUP DEHYDROGENATION OPERATOR HEAD FOR SUBSTANCE ABUSE TREATMENT, PSYCHOEDUCATION (08/10/18) INDIV PSYCHOTHERAPY FOR SUBSTANCE ABUSE TREATMENT, SUPPORT (08/10/18) MEDICATION MANAGEMENT (08/10/18) MEDS MGMT FOR SUBSTANCE ABUSE TREATMENT, NICOTINE REPLACE (08/10/18) Family History: States: Unknown Family Hx - Social History Hx Tobacco Use: Yes Hx Alcohol Use: Yes Hx Substance Use: No - Immunization History Hx Tetanus Toxoid Vaccination: (unk) Hx Influenza Vaccination: Yes Hx Pneumococcal Vaccination: (unk) Review Of Systems Constitutional: Negative for: Fever Cardiovascular: Negative for: Chest Pain Respiratory: Negative for: Shortness of Breath Psych: Positive for: Other (Alcohol Abuse). Negative for: Suicidal ideation Physical Exam - Physical Exam Appears: Non-toxic, No Acute Distress Skin: Warm, Dry Head: Atraumatic, Normacephalic Eye(s): bilateral: Normal Inspection, PERRL, EOMI Oral Mucosa: Moist Neck: Normal ROM Chest: Symmetrical Cardiovascular: Rhythm Regular, No Murmur Respiratory: Normal Breath Sounds, No Accessory Muscle Use Gastrointestinal/Abdominal: Soft, No Tenderness, No Distention Extremity: Bilateral: Atraumatic, Normal Color And Temperature, Normal ROM Neurological/Psych: Oriented x3, Normal Speech ED Course And Treatment O2 Sat by Pulse Oximetry: 97 (RA) Pulse Ox Interpretation: Normal Progress Note: No detox beds available. trailhead construction worker spoke to patient and provided outpatient resources. Medical Decision Making Medical Decision Making: clincally sboer for dc. requesting detox no medical complaitn. will dc. steady gait. no detox bed avail Disposition - Disposition Disposition: HOME/ ROUTINE Disposition Time: 20:00 Condition: STABLE Additional Instructions: please call for detox bed. return to any er with worsening. Instructions: Alcohol Use - When Is Drinking a Problem?, Alcohol Abuse and Alcoholism (DC) Forms: [email or web address] (Maori) - Clinical Impression Clinical Impression: Alcohol abuse - Scribe Statement The provider has reviewed the documentation as recorded by the Scribadonay Arndt All medical record entries made by the Scribe were at my direction and personally dictated by me. I have reviewed the chart and agree that the record accurately reflects my personal performance of the history, physical exam, medical decision making, and the department course for this patient. I have also personally directed, reviewed, and agree with the discharge instructions and disposition.
[2018-09-13 23:18] VITALS: RESP 18
== END 2018-09-13 21:00 | disposition home or self-care (01) ==
LOC: C.ER 18:22
DX: F10.10 Alcohol abuse, uncomplicated (principal); E03.9 Hypothyroidism, unspecified; E78.00 Pure hypercholesterolemia, unspecified; Z59.0 Homelessness; Z72.0 Tobacco use

== ENCOUNTER 2018-09-19 20:09 | Inpatient (IN) | payer OTHER ==
--- NOTE | 2018-09-19 22:21 | C.PDOC ---
History Of Present Illness 53 year old male, whose past medical history includes alcohol abuse and questionable cardiac disease, presents to the ED for evaluation of chest pain that has been intermittent for the past month. Patient is also requesting alcohol detox, and states his last drink was prior to arrival. Patient is unable to recall any specific diagnoses or names of his medications. Patient denies shortness of breath and has no other complaints at this time. Time Seen by Provider: 09/19/18 21:28 Chief Complaint (Nursing): Chest Pain History Per: Patient History/Exam Limitations: no limitations Onset/Duration Of Symptoms: Intermittent Episodes (one month ) Current Symptoms Are (Timing): Still Present Quality: "Pain" Past Medical History Reviewed: Historical Data, Nursing Documentation, Vital Signs Vital Signs: Last Vital Signs Temp 98.1 F 09/19/18 20:15 Pulse 95 H 09/19/18 20:15 Resp 20 09/19/18 20:15 BP 147/80 09/19/18 20:15 Pulse Ox 95 09/19/18 20:15 - Medical History PMH: Depression, Gastrointestinal Ulcer, Hypercholesterolemia Denies: Diabetes, Hepatitis, HIV, HTN, Hypothyroidism, Chronic Kidney Disease, Seizures, Sexually Transmitted Disease Surgical History: No Surg Hx - [facility] Procedures ALCOHOL DETOXIFICATION (09/03/13) DETOXIFICATION SERVICES FOR SUBSTANCE ABUSE TREATMENT (08/10/18) GROUP MACHINE SETTER AUTOMATIC FOR SUBSTANCE ABUSE TREATMENT, PSYCHOEDUCATION (08/10/18) INDIV PSYCHOTHERAPY FOR SUBSTANCE ABUSE TREATMENT, SUPPORT (08/10/18) MEDICATION MANAGEMENT (08/10/18) MEDS MGMT FOR SUBSTANCE ABUSE TREATMENT, NICOTINE REPLACE (08/10/18) Family History: States: Unknown Family Hx - Social History Hx Tobacco Use: Yes Hx Alcohol Use: Yes Hx Substance Use: No - Immunization History Hx Tetanus Toxoid Vaccination: (unk) Hx Influenza Vaccination: Yes Hx Pneumococcal Vaccination: (unk) Review Of Systems Cardiovascular: Positive for: Chest Pain Respiratory: Negative for: Shortness of Breath Psych: Positive for: Other (alcohol detox ) Physical Exam - Physical Exam Appears: Non-toxic, No Acute Distress, Other (visibly intoxicated ) Skin: Normal Color, Warm, Dry Head: Atraumatic, Normacephalic Eye(s): bilateral: Normal Inspection Oral Mucosa: Moist, Other (alcohol on breath) Neck: Supple Chest: Symmetrical, No Deformity, No Tenderness Cardiovascular: Rhythm Regular, No Murmur Respiratory: Normal Breath Sounds, No Rales, No Rhonchi, No Wheezing Extremity: Normal ROM, Capillary Refill (less than 2 seconds ) Neurological/Psych: No Normal Speech (slurred), Other (arousable to touch and verbal stimuli) ED Course And Treatment - Laboratory Results Result Diagrams: 09/19/18 22:22 09/19/18 22:22 Lab Interpretation: No Acute Changes (ETOH 266 with elevated AST) ECG: Interpreted By Me ECG Rhythm: Sinus Rhythm ECG Interpretation: Normal O2 Sat by Pulse Oximetry: 95 (on RA) Pulse Ox Interpretation: Normal - Radiology CXR: Interpreted by Me CXR Interpretation: Yes: No Acute Disease Progress Note: Bloodwork, urinalysis, CXR, EKG ordered and reviewed. Aspirin PO given. Patient to be seen in ED by crisis for consideration for alcohol detox. Patient is medically cleared. Disposition - Disposition Disposition Time: 00:45 Condition: STABLE - Clinical Impression Clinical Impression: Chest pain, Alcohol intoxication, Alcohol use disorder - Scribe Statement The provider has reviewed the documentation as recorded by the Scribe (Kassy Doyle) Provider Attestation: All medical record entries made by the Scribe were at my direction and personally dictated by me. I have reviewed the chart and agree that the record accurately reflects my personal performance of the history, physical exam, medical decision making, and the department course for this patient. I have also personally directed, reviewed, and agree with the discharge instructions and disposition. Physician Patient Turnover Patient Signed Over To: Marianela Cortés Handoff Comments: pending crisis eval for alcohol detox
[2018-09-19 22:26] LABS: BASO # 0.1 K/uL (0.0-0.2); EOS # 0.1 K/uL (0.0-0.7); EOS % 1.6 % (0.0-4.0); HEMOGLOBIN 14.2 g/dL (12.0-18.0); LYMPH # 1.3 K/uL (1.0-4.3); MEAN CELL VOLUME 92.6 fL (80.0-94.0); MEAN CORPUSCULAR HEMOGLOBIN 30.2 pg (27.0-31.0); MEAN CORPUSCULAR HGB CONC 32.6 g/dL (33.0-37.0); MEAN PLATELET VOLUME 7.6 fL (7.2-11.7); MONO # 0.8 K/uL (0.0-0.8); NEUT # 3.7 K/uL (1.8-7.0); NEUT % 61.4 % (50.0-75.0); NRBC % 0.1 % (0.0-2.0); RBC 4.69 Mil/uL (4.40-5.90); RED CELL DISTRIBUTION WIDTH 19.1 % (11.5-14.5)
[2018-09-19 22:28] LABS: SQUAMOUS EPITHIAL < 1 /hpf (0-5); URINE BILIRUBIN NEGATIVE (NEGATIVE); URINE BLOOD NEGATIVE (NEGATIVE); URINE CLARITY Clear (Clear); URINE COLOR Yellow (YELLOW); URINE GLUCOSE (UA) NORMAL (Normal); URINE LEUKOCYTE ESTERASE NEG Leu/uL (Negative); URINE PROTEIN NEGATIVE (NEGATIVE)
[2018-09-19 22:48] LABS: ALB/GLOB RATIO 1.4 (1.0-2.1); ALBUMIN 4.5 g/dL (3.5-5.0); ALT/SGPT 97 U/L (21-72); AST/SGOT 191 U/L (17-59); BLOOD UREA NITROGEN 5 mg/dL (9-20); CALCIUM 8.4 mg/dl (8.6-10.4); GFR NON-AFRICAN AMERICAN > 60
[2018-09-20 04:52] LABS: BARBITURATES, UR NEGATIVE (NEGATIVE); BENZODIAZEPINES, UR NEGATIVE (NEGATIVE); OPIATES, UR NEGATIVE (NEGATIVE); PHENCYCLIDINE, UR NEGATIVE (NEGATIVE)
[2018-09-20 06:33] LABS: SQUAMOUS EPITHIAL 1 /hpf (0-5); URINE BILIRUBIN NEGATIVE (NEGATIVE); URINE BLOOD NEGATIVE (NEGATIVE); URINE CLARITY Clear (Clear); URINE COLOR Yellow (YELLOW); URINE GLUCOSE (UA) NORMAL (Normal); URINE HYALINE CAST 0-2 /lpf (0-2); URINE LEUKOCYTE ESTERASE 2+ Leu/uL (Negative); URINE PROTEIN NEGATIVE (NEGATIVE)
--- NOTE | 2018-09-20 09:08 | PCM.BM ---
<GironPetrona - Last Filed: 09/20/18 09:08> Treatment Plan Problems - Problems identified on initial assessmt Anxiety related to substance use Date Initiated: 09/20/18 Time Initiated: 08:00 Assessment reference: NA Status: Active Knowledge deficit alcohol use Date Initiated: 09/20/18 Time Initiated: 08:00 Status: Active Low motivation to change Date Initiated: 09/20/18 Time Initiated: 08:00 Assessment reference: NA Status: Active Treatment assets and liabiliti Patient Assests: cooperative, ADL independent, cognitively intact, good interpersonal skills Patient Liabilities: financial problems, relationship conflicts - Milieu Protocol Maintain good personal hygiene: daily Encourage regular showers, daily Remind patient to perform daily oral care, daily Assist patient to perform ADL's Conduct patient checks and document Observation sheet: Q15 minutes Maintain personal safety: every shift Educate patient to report safety concerns to staff, every shift Monitor environment for contraband/sharps Medication safety: Monitor for expected outcome, potential side effects: every shift, Assess barriers to learning: every shift, Assess readiness for medication education: every shift <Miriam Trevino - Last Filed: 09/21/18 14:28> Family Contact Family involvement: No known Family/SO - Goals for Treatment Patient goals for treatment: Complete detox and apply for inpatient rehab at [facility]. Discharge/Continuing Care - Education Needs Education Needs: Patient Medication, Patient Diagnosis/Disease Process, Patient Coping Skills, Patient Anger Management skills, Patient Placement options, Patient Community resources - Discharge Discharge Criteria: No longer exhibiting s/s of withdrawal, Reduction of target symptoms Discharge to:: Substance Abuse Rehab - Treatment Team Participation Patient/Family/SO Statement: 09/21/18 14:27 (via dietitian, Kathrine) "I wanna go to [facility]. Nii told me to call him and there would be a bed for me sometime next week." Discussed with Family/SO: No Was Patient/Family/SO present at Treatment Team Meeting: Yes
--- NOTE | 2018-09-20 09:35 | RAD ---
Date of service: 09/19/2018 PROCEDURE: CHEST RADIOGRAPH, 1 VIEW HISTORY: chest pain COMPARISON: 08/03/2018 FINDINGS: LUNGS: Clear. PLEURA: No pneumothorax or pleural fluid seen. CARDIOVASCULAR: No aortic atherosclerotic calcification present. probable top-normal heart size. OSSEOUS STRUCTURES: BILATERAL SHOULDER ARTHROSIS. left calcific rotator cuff tendinopathy and/or calcific bursitis-similar VISUALIZED UPPER ABDOMEN: Normal. OTHER FINDINGS: None. IMPRESSION: No active disease. Other findings as above.
--- NOTE | 2018-09-20 11:41 | PCM.PSYCH ---
Initial Psychiatric Evaluation - Initial Psychiatric Evaluation Type of Admission: Voluntary Legal Status: Capacity Chief Complaint (in patient's own words): I want to quit drinking.' History of Present Illness and Precipitating Events: Patient is a 53 year old HM, who came to the [facility] ED to get help in Alcohol detox. Patient reports a long history of drinking. He reports of drinking 4-6 beers daily, of size 24-48 oz. He reports that he came to the [facility] to get help and stop drinking. He is BAL was 266. He denies any past history of any inpatient psychiatric hospitalizations. He also denies any history of follow-up with any psychiatrist. Reports history of few detoxes and rehabs in the past, last detox was at [facility] followed by the rehab at [facility]. He reports withdrawal symptoms including nausea, cramps, headaches, anxiety, sweating and shakes. However he denies any feelings of hopelessness or helplessness. He denies any suicidal ideation or any suicidal ideation. He denies any auditory or visual hallucinations or any paranoia. He denies any other substance abuse. Past medical history None reported Current Medications: Active Medications Generic Name Dose Route Start Last Admin Trade Name Freq PRN Reason Stop Dose Admin Clonidine HCl 0.1 mg 09/20/18 07:00 Catapres PO Q6 PRN Symptoms of alcohol withdrawl Hydroxyzine HCl 25 mg 09/20/18 07:00 Atarax PO Q6 PRN Anxiety Ibuprofen 600 mg 09/20/18 06:59 Motrin Tab PO Q6 PRN Pain, moderate (4-7) Ondansetron HCl 4 mg 09/20/18 07:01 Zofran Tab PO Q6 PRN Nausea/Vomiting Trazodone HCl 50 mg 09/20/18 07:01 Desyrel PO HS PRN Insomnia Past Psychiatric History - Past Psychiatric History Previous Treatment History: Inpatient Pertinent Medical Hx (Current Medical&Sleep Prob, Allergies): Allergies Allergy/AdvReac Type Severity Reaction Status Date / Time No Known Allergies Allergy Verified 09/19/18 20:19 No Known Home Med 09/01/18 Review of Systems - Review of Systems All systems: reviewed and no additional remarkable complaints except - Psychiatric Psychiatric: Anxiety, Irritability. absent: Suicidal Ideation Mental Status Examination - Personal Presentation Personal Presentation: Looks stated age - Affect Affect: Constricted - Motor Activity Motor Activity: Calm - Reliability in Providing Information Reliability in Providing Information: Fair - Speech Speech: Organized - Mood Mood: Anxious - Formal Thought Process Formal Thought Process: No Impairment - Obsessions/Compulsions Obsessions: No Compulsions: No - Cognitive Functions Orientation: Person, Place, Situation, Time Sensorium: Alert Attention/Concentration: Attentive Abstract Thinking: Alcalde Estimate of Intelligence: Below average Judgement: Imparied, as evidence by: Poor judgement, Intact, as evidence by: Insight regarding need for hospitalization - Risk Risk: Withdrawal, Diminished functioning - Limitations Limitations: Living alone DSM 5 DX - DSM 5 DSM 5 Diagnosis: Alcohol use disorder severe Alcohol withdrawal - Recommended/Plan of Treatment Treatment Recommendations and Plan of Treatment: Alcohol use disorder severe Alcohol withdrawal CBT Psychoeducation Supportive therapy and group therapy Ativan taper Detox medications Trazodone 50 mg p.o. nightly Neurontin 100 mg p.o. 3 times daily
[2018-09-20] MEDS: Multiple Vitamins Tab PO SCH (12:10)
[2018-09-21] MEDS: Multiple Vitamins Tab PO SCH (09:04)
--- NOTE | 2018-09-21 11:26 | CARD ---
APPROVED REPORT Date of service: 09/19/2018 EKG Measurement Heart [id number] <Conclusion> Normal sinus rhythm Normal ECG
--- NOTE | 2018-09-21 16:19 | PCM.PYCHPN ---
Psychiatric Progress Note - Psychiatric Progress Note Patient seen today, length of contact: 15 minutes Patient Chief Complaint: I am feeling little better. Problems Identified/Issues Discussed: Patient seen, chart reviewed, case discussed with the staff. Issues related to illness and treatment were discussed with the patient and staff. Reported compliant with treatment with no adverse effects. Tolerating treatment very well. Patient reported feeling little better with the treatment, stated has some withdrawal symptoms including body aches, shaking, sweating, sleeping difficulty and anxiety. Mood reported as Anxious. Affect appropriate. Patient was awake, alert and oriented x3. Calm and cooperative. Aftercare discussed with the patient. Patient denied any delusions, no auditory or visual hallucinations, no suicidal ideations or homicidal ideations at the time of evaluation. Medical Problems: None reported. Diagnostic Results: Reviewed DSM 5 Symptoms Update: Some improvement with treatment. Medication Change: No Medical Record Reviewed: Yes Mental Status Examination - Cognitive Function Orientation: Person, Place, Situation, Time Memory: Intact Attention: WNL Concentration: WNL Association: [facility] Fund of Knowledge: [facility] Decription of patient's judgement and insights: Fair - Mood Mood: Anxious - Affect Affect: Other (Appropriate) - Speech Speech: Appropriate - Formal Thought Process Formal Thought Process: No Impairment Psychotic Thoughts and Behaviors: None - Suicidal Ideation Suicidal Ideation: No - Homicidal Ideation Homicidal Ideation: No Goal/Treatment Plan - Goal/Treatment Plan Need for Continued Stay: Remain at risks for inpatient hospitalization, Discharge may exacerbated symptoms, Severe functional impairment Progress Toward Problem(s) and Goals/Treatment Plan: Some improvement with treatment. Patient education. Supportive therapy. CBT for relapse prevention. IA for abstinence. Continue treatment as before. Estimated Date of D/C: 09/24/18 - Smoking Cessation Smoking Cessation Initiated: Yes
[2018-09-22 08:52] VITALS: BP 114/75; PULSE 85; RESP 16; TEMP 97.6; O2SAT 98
[2018-09-22] MEDS: Multiple Vitamins Tab PO SCH (09:04)
== END 2018-09-22 10:15 | disposition home or self-care (01) | DRG 751 ==
LOC: C.ER 20:09 → C.7D 09-20 05:20
PROVIDERS: ADMIT Psychiatry & Neurology Psychiatry; ATTEND Psychiatry & Neurology Psychiatry
DX: F10.229 Alcohol dependence with intoxication, unspecified (principal); F10.239 Alcohol dependence with withdrawal, unspecified; F41.9 Anxiety disorder, unspecified; Y90.8 Blood alcohol level of 240 mg/100 ml or more

== ENCOUNTER 2018-10-13 00:09 | Emergency (ER) | payer OTHER ==
--- NOTE | 2018-10-13 00:13 | C.PDOC ---
History Of Present Illness 53 year old male is brought to the ED by EMS for alcohol intoxication. Patient admits to drinking alcohol today. Patient denies SI/HI, hallucinations, CP, SOB, injury, fall, trauma. Time Seen by Provider: 10/13/18 00:12 History Per: Patient, EMS History/Exam Limitations: intoxication Onset/Duration Of Symptoms: Hrs Current Symptoms Are (Timing): Still Present Suicide/Self Injury Attempted (Context): None Modifying Factor(s): Alcohol Associated Symptoms: denies: Depression, Suicidal Thoughts, Suicidal Plan Recent travel outside of the [place]: No Additional History Per: Patient, EMS Past Medical History Reviewed: Historical Data, Nursing Documentation, Vital Signs - Medical History PMH: Depression, Gastrointestinal Ulcer, Hypercholesterolemia Denies: Diabetes, Hepatitis, HIV, HTN, Hypothyroidism, Chronic Kidney Disease, Seizures, Sexually Transmitted Disease Surgical History: No Surg Hx - [facility] Procedures ALCOHOL DETOXIFICATION (09/03/13) DETOXIFICATION SERVICES FOR SUBSTANCE ABUSE TREATMENT (08/10/18) GROUP SOCIAL MEDIA MARKETING MANAGER FOR SUBSTANCE ABUSE TREATMENT, PSYCHOEDUCATION (08/10/18) INDIV PSYCHOTHERAPY FOR SUBSTANCE ABUSE TREATMENT, SUPPORT (08/10/18) MEDICATION MANAGEMENT (08/10/18) MEDS MGMT FOR SUBSTANCE ABUSE TREATMENT, NICOTINE REPLACE (08/10/18) Family History: States: Unknown Family Hx - Social History Hx Tobacco Use: Yes Hx Alcohol Use: Yes (ETOH) Hx Substance Use: Yes - Immunization History Hx Tetanus Toxoid Vaccination: (unk) Hx Influenza Vaccination: Yes Hx Pneumococcal Vaccination: (unk) Review Of Systems Constitutional: Negative for: Fever, Chills Cardiovascular: Negative for: Chest Pain Respiratory: Negative for: Shortness of Breath Gastrointestinal: Negative for: Nausea, Vomiting, Abdominal Pain Skin: Negative for: Rash Psych: Negative for: Depression, Suicidal ideation Physical Exam - Physical Exam Appears: Non-toxic, No Acute Distress Skin: Warm, Dry Head: Normacephalic Eye(s): bilateral: Normal Inspection Neck: Supple Chest: Symmetrical Cardiovascular: Rhythm Regular Respiratory: No Rales, No Rhonchi, No Wheezing Gastrointestinal/Abdominal: Soft, No Tenderness, No Guarding, No Rebound Extremity: Bilateral: Atraumatic, Normal Color And Temperature, Normal ROM Neurological/Psych: Oriented x3, Normal Speech, Normal Cognition Gait: Steady ED Course And Treatment O2 Sat by Pulse Oximetry: 96 (ON RA) Pulse Ox Interpretation: Normal Reevaluation Time: 05:39 Reassessment Condition: Improved Disposition Counseled Patient/Family Regarding: Studies Performed, Diagnosis, Need For Followup - Disposition Referrals: [facility] [Outside] Disposition: HOME/ ROUTINE Disposition Time: 00:13 Condition: FAIR Instructions: Alcohol Abuse and Alcoholism (DC) - Clinical Impression Clinical Impression: Alcohol intoxication, Alcohol use disorder, Alcohol abuse - Scribe Statement The provider has reviewed the documentation as recorded by the Scribe Lucas Tomas All medical record entries made by the Scribe were at my direction and personally dictated by me. I have reviewed the chart and agree that the record accurately reflects my personal performance of the history, physical exam, medical decision making, and the department course for this patient. I have also personally directed, reviewed, and agree with the discharge instructions and disposition.
[2018-10-13 05:36] VITALS: BP 118/74; PULSE 74; RESP 16; TEMP 98.2
[2018-10-13 05:39] VITALS: O2SAT 96
== END 2018-10-13 05:58 | disposition home or self-care (01) ==
LOC: C.ER 00:09
DX: F10.129 Alcohol abuse with intoxication, unspecified (principal); E78.00 Pure hypercholesterolemia, unspecified; Z72.0 Tobacco use

== ENCOUNTER 2018-10-14 23:23 | Emergency (ER) | payer OTHER ==
[2018-10-14 23:39] VITALS: TEMP 98; O2SAT 97
--- NOTE | 2018-10-14 23:53 | C.PDOC ---
History Of Present Illness 53 year old male presents to the ER with acute ETOH intoxication requesting ETOH detox. Patient is also complaining of chest pain for the past 4 days. He was seen last night for intoxication, denied chest pain at that time. Denies any other complaints. Time Seen by Provider: 10/14/18 23:35 Chief Complaint (Nursing): Substance Abuse History Per: Patient History/Exam Limitations: no limitations Onset/Duration Of Symptoms: Days Current Symptoms Are (Timing): Still Present Modifying Factor(s): Alcohol Involuntary Hold By: None Recent travel outside of the [place]: No Past Medical History Reviewed: Historical Data, Nursing Documentation, Vital Signs Vital Signs: Last Vital Signs Temp 98 F 10/14/18 23:34 Pulse 69 10/14/18 23:34 Resp 20 10/14/18 23:34 BP 121/77 10/14/18 23:34 Pulse Ox 97 10/14/18 23:34 - Medical History PMH: Depression, Gastrointestinal Ulcer, Hypercholesterolemia Denies: Diabetes, Hepatitis, HIV, HTN, Hypothyroidism, Chronic Kidney Disease, Seizures, Sexually Transmitted Disease - [facility] Procedures ALCOHOL DETOXIFICATION (09/03/13) DETOXIFICATION SERVICES FOR SUBSTANCE ABUSE TREATMENT (08/10/18) GROUP ROOFING PLANT SUPERVISOR FOR SUBSTANCE ABUSE TREATMENT, PSYCHOEDUCATION (08/10/18) INDIV PSYCHOTHERAPY FOR SUBSTANCE ABUSE TREATMENT, SUPPORT (08/10/18) MEDICATION MANAGEMENT (08/10/18) MEDS MGMT FOR SUBSTANCE ABUSE TREATMENT, NICOTINE REPLACE (08/10/18) Family History: States: Unknown Family Hx - Social History Hx Tobacco Use: Yes Hx Alcohol Use: Yes (ETOH) Hx Substance Use: Yes - Immunization History Hx Tetanus Toxoid Vaccination: No (unk) Hx Influenza Vaccination: Yes Hx Pneumococcal Vaccination: No (unk) Review Of Systems Except As Marked, All Systems Reviewed And Found Negative. Cardiovascular: Positive for: Chest Pain Physical Exam - Physical Exam Appears: Non-toxic, Other (ETOH on breath, no sign of injury) Skin: Normal Color, Warm, Dry Head: Atraumatic, Normacephalic Eye(s): bilateral: Normal Inspection Oral Mucosa: Moist Neck: Normal, Supple Chest: Symmetrical, No Tenderness Cardiovascular: Rhythm Regular Respiratory: Normal Breath Sounds, No Rales, No Rhonchi, No Wheezing Gastrointestinal/Abdominal: Soft, No Tenderness Neurological/Psych: Oriented x3, Normal Speech ED Course And Treatment ECG: Interpreted By Me ECG Rhythm: Sinus Rhythm ECG Interpretation: Normal Rate From EC O2 Sat by Pulse Oximetry: 97 (Room air) Pulse Ox Interpretation: Normal - Radiology CXR: Interpreted by Me, Viewed By Me CXR Interpretation: Yes: No Acute Disease. No: Infiltrates Reevaluation Time: 03:07 Reassessment Condition: Improved (PT CLEAR SPEECH AND THOUGHT, STEADY GAIT. AO3, NO S/S ACUTE INTOX.) - Physician Consult Information Time Consulting Physician Contacted: 03:07 Outcome Of Conversation: NO DETOX BED AVAIL Medical Decision Making Medical Decision Making: Plan: * EKG * CXR Disposition Counseled Patient/Family Regarding: Diagnosis, Need For Followup - Disposition Referrals: [facility] [Outside] [facility] [Outside] Disposition: HOME/ ROUTINE Disposition Time: 03:07 Condition: GOOD Instructions: Alcohol Abuse and Alcoholism (DC) Forms: [employer] ([employer]ym[employer]) - Clinical Impression Clinical Impression: Alcohol abuse - Scribe Statement The provider has reviewed the documentation as recorded by the Scribe Andrzej Watt All medical record entries made by the Scribe were at my direction and personally dictated by me. I have reviewed the chart and agree that the record accurately reflects my personal performance of the history, physical exam, medical decision making, and the department course for this patient. I have also personally directed, reviewed, and agree with the discharge instructions and disposition.
[2018-10-15 06:42] VITALS: BP 110/70; PULSE 82; RESP 14
--- NOTE | 2018-10-15 11:15 | RAD ---
HISTORY: CHEST PAIN COMPARISON: Chest x-ray performed 09/19/18 TECHNIQUE: Chest PA and lateral FINDINGS: LUNGS: No focal consolidation. Please note that chest x-ray has limited sensitivity for the detection of pulmonary masses. PLEURA: No significant pleural effusion identified. No definite pneumothorax . CARDIOVASCULAR: The cardiomediastinal silhouette appears within normal limits of size. No atherosclerotic calcification present. OSSEOUS STRUCTURES: Degenerative changes. VISUALIZED UPPER ABDOMEN: Unremarkable. OTHER FINDINGS: None. IMPRESSION: No focal consolidation.
--- NOTE | 2018-10-15 16:14 | CARD ---
APPROVED REPORT Date of service: 10/15/2018 EKG Measurement Heart [id number] <Conclusion> Normal sinus rhythm Minimal voltage criteria for LVH, may be normal variant Borderline ECG
== END 2018-10-15 06:00 | disposition home or self-care (01) ==
LOC: C.ER 23:23
DX: F10.129 Alcohol abuse with intoxication, unspecified (principal); Y90.9 Presence of alcohol in blood, level not specified

== ENCOUNTER 2018-10-18 23:51 | Emergency (ER) | payer OTHER ==
--- NOTE | 2018-10-19 00:06 | C.PDOC ---
History Of Present Illness 53 y/o male brought in by EMS for public intoxication, also claiming chest pain. Patient has many prior visits for ETOH intoxication. He complains of vague chest discomfort, initially describing it as right-sided then left-sided. No SOB. Patient has had normal cardiac work-ups in the past. He admits to drinking both shots and beer. No other complaints. Time Seen by Provider: 10/18/18 23:58 Chief Complaint (Nursing): Substance Abuse History Per: Patient History/Exam Limitations: no limitations Onset/Duration Of Symptoms: Hrs Current Symptoms Are (Timing): Still Present Suicide/Self Injury Attempted (Context): None Modifying Factor(s): Alcohol Severity: Mild Associated Symptoms: denies: Suicidal Thoughts, Suicidal Plan Additional History Per: EMS Past Medical History Reviewed: Historical Data, Nursing Documentation, Vital Signs Vital Signs: Last Vital Signs Temp 98.4 F 10/19/18 00:00 Pulse 65 10/19/18 00:00 Resp 18 10/19/18 00:00 BP 127/78 10/19/18 00:00 Pulse Ox 100 10/19/18 00:00 - Medical History PMH: Depression, Gastrointestinal Ulcer, Hypercholesterolemia Denies: Diabetes, Hepatitis, HIV, HTN, Hypothyroidism, Chronic Kidney Disease, Seizures, Sexually Transmitted Disease - [facility] Procedures ALCOHOL DETOXIFICATION (09/03/13) DETOXIFICATION SERVICES FOR SUBSTANCE ABUSE TREATMENT (08/10/18) GROUP BEHAVIORAL CONSULTANT FOR SUBSTANCE ABUSE TREATMENT, PSYCHOEDUCATION (08/10/18) INDIV PSYCHOTHERAPY FOR SUBSTANCE ABUSE TREATMENT, SUPPORT (08/10/18) MEDICATION MANAGEMENT (08/10/18) MEDS MGMT FOR SUBSTANCE ABUSE TREATMENT, NICOTINE REPLACE (08/10/18) Family History: States: Unknown Family Hx - Social History Hx Tobacco Use: Yes Hx Alcohol Use: Yes (ETOH) Hx Substance Use: Yes - Immunization History Hx Tetanus Toxoid Vaccination: No (unk) Hx Influenza Vaccination: Yes Hx Pneumococcal Vaccination: No (unk) Review Of Systems Constitutional: Negative for: Fever, Sweats Cardiovascular: Positive for: Chest Pain. Negative for: Palpitations Respiratory: Negative for: Cough, Shortness of Breath Gastrointestinal: Negative for: Nausea, Vomiting Neurological: Negative for: Weakness, Dizziness Psych: Positive for: Other (ETOH abuse). Negative for: Suicidal ideation Physical Exam - Physical Exam Appears: Non-toxic, No Acute Distress, Other (Appears older than stated age) Skin: Warm, Dry Head: Atraumatic, Normacephalic Eye(s): bilateral: Normal Inspection, PERRL, EOMI Nose: Normal Neck: Normal ROM Chest: Symmetrical, Tenderness (Mild tenderness to left chest wall) Cardiovascular: Rhythm Regular, No Murmur Respiratory: Normal Breath Sounds, No Rales, No Rhonchi, No Wheezing Gastrointestinal/Abdominal: Soft, No Tenderness, No Distention Extremity: Bilateral: Atraumatic, No Pedal Edema, Normal ROM Neurological/Psych: Oriented x3, Normal Speech, Other (AOB, appears intoxicated) ED Course And Treatment ECG: Interpreted By Me ECG Rhythm: Sinus Rhythm ECG Interpretation: Normal Rate From EC O2 Sat by Pulse Oximetry: 100 Pulse Ox Interpretation: Normal Medical Decision Making Medical Decision Making: alcohol abuse no sig cp normal EKG Disposition Doctor Will See Patient In The: Office Counseled Patient/Family Regarding: Studies Performed, Diagnosis - Disposition Referrals: Alcoholics Anonymous [Outside] [facility] [Outside] [facility] [Outside] [facility] [Outside] [facility] [Outside] [facility] [facility] [Outside] Non [facility] Provider, [Primary Care Provider] - Disposition: HOME/ ROUTINE Disposition Time: 00:06 Condition: GOOD Instructions: Alcohol Use - When Is Drinking a Problem? Forms: [facility] (Ghanaian) - Clinical Impression Clinical Impression: Alcohol abuse - Scribe Statement The provider has reviewed the documentation as recorded by the Brendaibadonay Arndt Provider Attestation: All medical record entries made by the Scribe were at my direction and personally dictated by me. I have reviewed the chart and agree that the record accurately reflects my personal performance of the history, physical exam, medical decision making, and the department course for this patient. I have also personally directed, reviewed, and agree with the discharge instructions and disposition.
[2018-10-19 01:18] VITALS: BP 140/80; PULSE 84; RESP 20; TEMP 98.2; O2SAT 97
--- NOTE | 2018-10-19 16:43 | CARD ---
APPROVED REPORT Date of service: 10/18/2018 EKG Measurement Heart [id number] <Conclusion> Normal sinus rhythm Normal ECG
== END 2018-10-19 01:16 | disposition home or self-care (01) ==
LOC: SUPCPDRO 23:51 → C.ER 23:51
DX: F10.10 Alcohol abuse, uncomplicated (principal); Y90.9 Presence of alcohol in blood, level not specified

== ENCOUNTER 2018-11-10 17:08 | Emergency (ER) | payer OTHER ==
--- NOTE | 2018-11-10 17:59 | C.PDOC ---
History Of Present Illness 53 y/o male pt presents to the ER due to intoxication. Pt denies any associate sx or complaints at this time. Time Seen by Provider: 11/10/18 17:09 Chief Complaint (Nursing): Substance Abuse History Per: Patient History/Exam Limitations: no limitations Onset/Duration Of Symptoms: Hrs Current Symptoms Are (Timing): Still Present Modifying Factor(s): Alcohol Past Medical History Reviewed: Historical Data, Nursing Documentation, Vital Signs Vital Signs: Last Vital Signs Temp 97.8 F 11/10/18 17:29 Pulse 94 H 11/10/18 17:29 Resp 18 11/10/18 17:29 BP 101/67 11/10/18 17:29 Pulse Ox 98 11/10/18 17:29 - Medical History PMH: Depression, Gastrointestinal Ulcer, Hypercholesterolemia - [facility] Procedures ALCOHOL DETOXIFICATION (09/03/13) DETOXIFICATION SERVICES FOR SUBSTANCE ABUSE TREATMENT (08/10/18) GROUP BRAND ENGINEER FOR SUBSTANCE ABUSE TREATMENT, PSYCHOEDUCATION (08/10/18) INDIV PSYCHOTHERAPY FOR SUBSTANCE ABUSE TREATMENT, SUPPORT (08/10/18) MEDICATION MANAGEMENT (08/10/18) MEDS MGMT FOR SUBSTANCE ABUSE TREATMENT, NICOTINE REPLACE (08/10/18) Family History: States: Unknown Family Hx - Social History Hx Tobacco Use: Yes Hx Alcohol Use: Yes (ETOH) Hx Substance Use: Yes - Immunization History Hx Tetanus Toxoid Vaccination: No (unk) Hx Influenza Vaccination: Yes Hx Pneumococcal Vaccination: No (unk) Review Of Systems Except As Marked, All Systems Reviewed And Found Negative. Constitutional: Positive for: Other (intoxicated ) Gastrointestinal: Negative for: Nausea, Vomiting Neurological: Negative for: Weakness, Numbness Physical Exam - Physical Exam Appears: Non-toxic, No Acute Distress, Other (alcohol on breath ) Skin: Warm, Dry Head: Atraumatic, Normacephalic Eye(s): bilateral: Other (pupils constricted) Oral Mucosa: Moist Throat: Normal, No Erythema, No Exudate Chest: Symmetrical Cardiovascular: Rhythm Regular Respiratory: Normal Breath Sounds Gastrointestinal/Abdominal: Soft, No Tenderness Neurological/Psych: Oriented x3, Normal Speech, Normal Cognition, Normal Motor, Normal Sensation Gait: Steady ED Course And Treatment O2 Sat by Pulse Oximetry: 98 (RA) Pulse Ox Interpretation: Normal Medical Decision Making Medical Decision Making: plans: -- glucose, POC pt obseverd in nad. cliniallyc sober steaqdy gait stable for dc. no detox bed Disposition - Disposition Referrals: Alcoholics Anonymous [Outside] Disposition: HOME/ ROUTINE Disposition Time: 01:00 Condition: STABLE Additional Instructions: return to er with worsening symptoms or concerns. Instructions: Alcohol Abuse and Alcoholism (DC) Forms: [employer] (Japanese) - Clinical Impression Clinical Impression: Alcohol abuse - Scribe Statement The provider has reviewed the documentation as recorded by the Brendaibadonay Chapman Do Provider Attestation: All medical record entries made by the Debbie were at my direction and personally dictated by me. I have reviewed the chart and agree that the record accurately reflects my personal performance of the history, physical exam, medical decision making, and the department course for this patient. I have also personally directed, reviewed, and agree with the discharge instructions and disposition.
[2018-11-11 01:38] VITALS: TEMP 98
[2018-11-11 01:45] VITALS: BP 133/72; PULSE 81; RESP 18
[2018-11-11 13:22] VITALS: O2SAT 98
== END 2018-11-11 01:39 | disposition home or self-care (01) ==
LOC: C.ER 17:08
DX: F10.10 Alcohol abuse, uncomplicated (principal); E78.00 Pure hypercholesterolemia, unspecified; Z72.0 Tobacco use